=== PATIENT | female | born 1965 | race Caucasian/White ===

== ENCOUNTER 2018-02-23 09:55 | Emergency (ER) | payer OTHER ==
[~2018-02-23] VITALS: Ht 162.6 cm; Wt 81.2 kg
[2018-02-23 10:03] VITALS: Ht 162.6 cm; Wt 81.2 kg
[2018-02-23 11:08] VITALS: BP 135/91
== END 2018-02-23 11:08 | disposition home or self-care (01) ==
LOC: ED 09:55
DX: L27.0 Generalized skin eruption due to drugs and medicaments taken internally (principal); F17.210 Nicotine dependence, cigarettes, uncomplicated; I10 Essential (primary) hypertension; E11.9 Type 2 diabetes mellitus without complications; J42 Unspecified chronic bronchitis; F20.9 Schizophrenia, unspecified; F31.9 Bipolar disorder, unspecified; Z88.0 Allergy status to penicillin; Z88.6 Allergy status to analgesic agent; Z71.6 Tobacco abuse counseling
CPT/HCPCS: 82962; 99406

== ENCOUNTER 2018-07-25 17:03 | Emergency (ER) | payer OTHER ==
[~2018-07-25] VITALS: Ht 160 cm; Wt 80.4 kg
[2018-07-25 17:06] VITALS: Ht 160 cm; Wt 80.4 kg
[2018-07-25 18:24] VITALS: BP 133/85
== END 2018-07-25 18:24 | disposition home or self-care (01) ==
LOC: ED 17:03
DX: R51 Headache (principal); F17.210 Nicotine dependence, cigarettes, uncomplicated; E11.9 Type 2 diabetes mellitus without complications; F31.9 Bipolar disorder, unspecified; F20.9 Schizophrenia, unspecified; Z88.0 Allergy status to penicillin; Z88.6 Allergy status to analgesic agent
CPT/HCPCS: J1885

== ENCOUNTER 2018-12-10 11:29 | Emergency (ER) | payer OTHER ==
[~2018-12-10] VITALS: Ht 160 cm; Wt 78.5 kg
[2018-12-10 11:36] VITALS: Ht 160 cm; Wt 78.5 kg
[2018-12-10 14:35] VITALS: BP 125/85
== END 2018-12-10 14:35 | disposition home or self-care (01) ==
LOC: ED 11:29
DX: J06.9 Acute upper respiratory infection, unspecified (principal); I10 Essential (primary) hypertension; F31.9 Bipolar disorder, unspecified; Z88.0 Allergy status to penicillin; Z88.6 Allergy status to analgesic agent